=== PATIENT | female | born 1980 | race Hispanic/Latino ===

== ENCOUNTER 2022-09-30 09:58 | Emergency (ER) | payer BC ==
[~2022-09-30] VITALS: Ht 152.4 cm; Wt 99.8 kg
[2022-09-30 10:44] LABS: BASOPHILS % (AUTO) 0.4 % (0.0-5.0); EOSINOPHILS % (AUTO) 0.5 % (0.0-8.0); HEMATOCRIT 36.3 % (36-48); LYMPHOCYTES % (AUTO) 19.9 % (21.0-51.0); MEAN CORPUSCULAR HEMOGLOBIN 27.6 pg (27.0-33.0); MEAN CORPUSCULAR HGB CONC 32.8 g/dL (32.0-36.0); MEAN CORPUSCULAR VOLUME 84.2 fL (79-99); MONOCYTES % (AUTO) 10.1 % (3.0-13.0); NEUTROPHILS % (AUTO) 68.6 % (40.0-77.0); PLATELET COUNT (AUTO) 298 K/uL (130-400); RED BLOOD CELL COUNT(AUTO) 4.31 MIL/uL (4.00-5.50); RED CELL DISTRIBUTION WIDTH 12.8 % (11.0-15.5); WHITE BLOOD COUNT (AUTO) 9.9 K/uL (4.8-10.8)
[2022-09-30 10:54] LABS: CREATININE 0.9 mg/dL (0.5-1.5); POTASSIUM 3.4 mmol/L (3.5-5.1)
[2022-09-30 10:58] LABS: ALBUMIN 2.8 g/dL (3.5-5.0)
[2022-09-30 11:10] LABS: APPEARANCE,URINE CLOUDY (CLEAR); BILIRUBIN,URINE NEGATIVE (NEGATIVE); COLOR,URINE YELLOW (YELLOW); GLUCOSE, URINE (UA) NEGATIVE (NEGATIVE); KETONES,URINE 5 mg/dL (NEGATIVE); LEUKOCYTE ESTERASE ,URINE 500 Leu/uL (NEGATIVE); NITRATE,URINE NEGATIVE (NEGATIVE); OCCULT BLOOD,URINE SMALL (NEGATIVE); PROTEIN,URINE 10 mg/dL (NEGATIVE); UROBILINOGEN,URINE 0.2 mg/dL (0.2-1.0)
[2022-09-30 11:12] LABS: BACTERIA,URINE MOD /HPF (None Seen); MUCUS,URINE RARE LPF (None Seen); SQUAMOUS EPITHELIAL CELL,UR MOD /HPF (0-2); WBC,URINE TNTC /HPF (0-1); YEAST,URINE BUDDING FEW /HPF (None Seen)
[2022-09-30] MEDS ORDERED: KETOROLAC 30MG VIAL (30MG/ML) IVP SCH (12:00)
[2022-09-30] MEDS ORDERED: ONDANSETRON ODT 4MG TAB SL SCH (12:00)
[2022-09-30] MEDS ORDERED: CEFTRIAXONE 1G VIAL IVP SCH (12:00)
[2022-09-30] MEDS ORDERED: PHENAZOPYRIDINE HCL 200 MG TABLET PO SCH (12:00)
[2022-09-30] MEDS ORDERED: ONDA4TAB10 SL (13:46)
[2022-09-30] MEDS ORDERED: IBUP-2070 PO (13:46)
[2022-09-30] MEDS ORDERED: PHEN-847 PO (13:46)
[2022-09-30] MEDS ORDERED: MACR100 PO (13:46)
[2022-09-30 13:55] VITALS: BP 126/78
== END 2022-09-30 14:05 | disposition home or self-care (01) ==
LOC: EDH 09:58
DX: N30.00 Acute cystitis without hematuria (principal); D64.9 Anemia, unspecified; F17.200 Nicotine dependence, unspecified, uncomplicated; Z79.1 Long term (current) use of non-steroidal anti-inflammatories (NSAID); Z90.49 Acquired absence of other specified parts of digestive tract
CPT/HCPCS: 99284; 96374; 96375; 80053; 85025; 87088; 81001; 81025; 36415; J0696; J1885